=== PATIENT | female | born 1965 | race Caucasian/White ===

== ENCOUNTER 2018-02-05 11:28 | Emergency (ER) | payer SELFPAY ==
[2018-02-05 12:32] LABS: HCG,QUALITATIVE URINE NEGATIVE (NEGATIVE)
[2018-02-05 12:46] LABS: SQUAMOUS EPITHIAL < 1 /hpf (0-5); URINE BACTERIA RARE (<OCC); URINE BILIRUBIN NEGATIVE (NEGATIVE); URINE BLOOD NEGATIVE (NEGATIVE); URINE CLARITY Hazy (Clear); URINE COLOR Yellow (YELLOW); URINE GLUCOSE (UA) NORMAL (Normal); URINE HYALINE CAST 0-2 /lpf (0-2); URINE LEUKOCYTE ESTERASE 1+ Leu/uL (Negative); URINE PROTEIN NEGATIVE (NEGATIVE)
--- NOTE | 2018-02-05 14:14 | C.PDOC ---
History Of Present Illness 52 y/o female presents to the ED complaining of left lower abdominal pain, onset this morning. Pain radiates to the lower back and left leg. Associated with nausea and subjective fever. No vomiting, diarrhea, dysuria, hematuria, or incontinence. Pain is descried as constant, and not exacerbated by movement or change in position. Time Seen by Provider: 02/05/18 12:30 Chief Complaint (Nursing): Abdominal Pain History Per: Patient History/Exam Limitations: no limitations Onset/Duration Of Symptoms: Hrs Current Symptoms Are (Timing): Still Present Past Medical History Reviewed: Historical Data, Nursing Documentation, Vital Signs Vital Signs: Last Vital Signs Temp 98.9 F 02/05/18 15:16 Pulse 61 02/05/18 15:16 Resp 14 02/05/18 15:16 BP 123/73 02/05/18 15:16 Pulse Ox 61 L 02/05/18 15:16 - Medical History PMH: No Chronic Diseases Surgical History: Cholecystectomy, Family History: States: No Known Family Hx - Social History Hx Alcohol Use: No Hx Substance Use: No - Immunization History Hx Tetanus Toxoid Vaccination: No Hx Influenza Vaccination: No Hx Pneumococcal Vaccination: No Review Of Systems Except As Marked, All Systems Reviewed And Found Negative. Constitutional: Positive for: Fever Gastrointestinal: Positive for: Nausea, Abdominal Pain. Negative for: Vomiting , Diarrhea Genitourinary: Negative for: Dysuria, Frequency, Incontinence, Hematuria Musculoskeletal: Positive for: Back Pain, Leg Pain Physical Exam - Physical Exam Appears: Non-toxic, No Acute Distress Skin: Normal Color, Warm, Dry Head: Atraumatic, Normacephalic Eye(s): bilateral: Normal Inspection, PERRL, EOMI Nose: Normal Oral Mucosa: Moist Neck: Normal ROM, Supple Chest: Symmetrical Cardiovascular: Rhythm Regular, No Friction Rub, No Murmur Respiratory: Normal Breath Sounds, No Accessory Muscle Use, No Stridor, No Wheezing Gastrointestinal/Abdominal: Soft, Tenderness (mild to moderate), No Distention Back: Normal Inspection, No CVA Tenderness, No Vertebral Tenderness Extremity: Normal ROM, No Calf Tenderness, No Deformity, No Swelling Extremity: Bilateral: Normal Color And Temperature Pulses: Left Dorsalis Pedis: Normal, Right Dorsalis Pedis: Normal Neurological/Psych: Oriented x3, Normal Speech, Normal Motor Gait: Steady ED Course And Treatment - Laboratory Results Result Diagrams: 02/05/18 14:04 02/05/18 14:04 O2 Sat by Pulse Oximetry: 100 (RA) Pulse Ox Interpretation: Normal Medical Decision Making Medical Decision Making: Time: 13:04 Initial Plan: * CMP * CBC * Lipase * UA * Urine test * Toradol 30 mg IV * CT Abd/Pelvis W/O contrast On re-exam, the patient reports improvement of symptoms. Lungs are CTA, heart is RRR, abdomen is soft, non-tender and the patient is tolerating PO well. Ambulatory in the Ed with steady gait. Follow up with the medical doctor within 1-2 days. Return if worsend. Disposition Counseled Patient/Family Regarding: Studies Performed, Diagnosis, Need For Followup, Rx Given - Disposition Referrals: [facility] [Outside] [facility] [Outside] Disposition: HOME/ ROUTINE Disposition Time: 18:34 Condition: GOOD Additional Instructions: Follow up with the OBGYN within 1-2 days. Return if worsend. 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 - Scribe Statement The provider has reviewed the documentation as recorded by the Scribe (Mar Guevara) All medical record entries made by the Scribe were at my direction and personally dictated by me. I have reviewed the chart and agree that the record accurately reflects my personal performance of the history, physical exam, medical decision making, and the department course for this patient. I have also personally directed, reviewed, and agree with the discharge instructions and disposition.
[2018-02-05 14:15] LABS: BASO % 0.5 % (0.0-2.0); EOS # 0.1 K/uL (0.0-0.7); HEMOGLOBIN 11.6 g/dL (11.0-16.0); LYMPH # 1.7 K/uL (1.0-4.3); LYMPH % 29.6 % (20.0-40.0); MEAN CELL VOLUME 87.4 fL (81.0-99.0); MEAN CORPUSCULAR HEMOGLOBIN 29.9 pg (27.0-31.0); MEAN CORPUSCULAR HGB CONC 34.2 g/dL (33.0-37.0); MEAN PLATELET VOLUME 7.6 fL (7.2-11.7); MONO # 0.4 K/uL (0.0-0.8); MONO % 6.9 % (0.0-10.0); NEUT # 3.5 K/uL (1.8-7.0); NRBC % 0.1 % (0.0-2.0); RBC 3.88 Mil/uL (3.80-5.20); RED CELL DISTRIBUTION WIDTH 14.9 % (11.5-14.5); WHITE BLOOD COUNT 5.7 K/uL (4.8-10.8)
[2018-02-05 14:40] LABS: ALB/GLOB RATIO 1.2 (1.0-2.1); ALT/SGPT 27 U/L (9-52); AST/SGOT 30 U/L (14-36); BLOOD UREA NITROGEN 14 mg/dL (7-17); CALCIUM 9.5 mg/dl (8.6-10.4); GFR AFRICAN-AMERICAN > 60; GFR NON-AFRICAN AMERICAN > 60; LIPASE 118 U/L (23-300)
--- NOTE | 2018-02-05 15:45 | CT ---
PROCEDURE: CT Abdomen and Pelvis without intravenous contrast HISTORY: LLQ abd pain, L flank pain COMPARISON: None. TECHNIQUE: CT scan of the abdomen and pelvis was performed without administration of intravenous contrast. Oral contrast was not administered. Coronal and sagittal reformatted images were obtained. . Radiation dose: Total exam DLP = 505.59 mGy-cm. This CT exam was performed using one or more of the following dose reduction techniques: Automated exposure control, adjustment of the mA and/or kV according to patient size, and/or use of iterative reconstruction technique. FINDINGS: LOWER THORAX: The visualized lungs are clear. LIVER: The liver is normal in size. No gross lesion or ductal dilatation. GALLBLADDER AND BILE DUCTS: Not visualized and may be surgically absent. PANCREAS: Normal in sinus. No gross lesion or ductal dilatation. SPLEEN: Normal in size. ADRENALS: No discrete nodule. KIDNEYS AND URETERS: Both kidneys are normal in size without nephrolithiasis. No hydronephrosis. VASCULATURE: No aortic aneurysm. BOWEL: The small bowel loops are normal in caliber. The colon is unremarkable. No bowel dilatation or obstruction. APPENDIX: Normal appendix. PERITONEUM: No free fluid. No free air. LYMPH NODES: No enlarged lymph nodes. BLADDER: Unremarkable. REPRODUCTIVE: There is a 10.9 x 10.2 x 8.2 cm cystic mass in the left adnexa deviating the uterus to the right. BONES: No acute fracture. Within normal limits for the patient's age. OTHER FINDINGS: There is a small fat containing umbilical hernia. IMPRESSION: 1. Large 10.9 x 10.2 x 8.2 cm cystic mass in the left adnexa with resultant mass effect and deviation of the uterus to the right. The differential considerations include ovarian cyst, cystadenoma and cystadenocarcinoma. Clinical correlation and follow-up is advised. Gynecologic consult is recommended. 2. No evidence of nephrolithiasis or obstructive uropathy.
--- NOTE | 2018-02-05 18:21 | US ---
HISTORY: large pelvic mass on CT, LLQ abd pain COMPARISON: None available. TECHNIQUE: Transabdominal and transvaginal pelvic ultrasound was performed. FINDINGS: UTERUS: Measures 7.9 x 3.9 x 4.5 cm. Anteverted, normal in size and appearance. No fibroid or other mass lesion seen. ENDOMETRIUM: Measures 2.0 mm in diameter. Unremarkable. CERVIX: No cervical abnormality identified. RIGHT OVARY: Measures 1.7 x 1.5 x 2.0 cm. No solid mass. Normal flow. LEFT OVARY: Measures 10.7 x 7.0 x 9.9 cm. No solid mass. Normal flow. There is redemonstration of a large 9.9 x 6.8 x 10.0 cm anechoic mass without significant increased central peripheral vascularity in the left ovary. FREE FLUID: No significant free fluid noted. OTHER FINDINGS: None. IMPRESSION: 9.9 x 6.8 x 10.0 cm large cystic mass in the left ovary. The differential considerations include simple cyst, cystadenoma and cystadenocarcinoma. Clinical follow-up and gynecologic consult is recommended.
[2018-02-05 18:45] VITALS: BP 131/80; PULSE 62; RESP 16; TEMP 98.6; O2SAT 99
== END 2018-02-05 18:52 | disposition home or self-care (01) ==
LOC: C.ER 11:28
DX: N83.202 Unspecified ovarian cyst, left side (principal)
CPT/HCPCS: 74176; 76830; 76856; 80053; 81001; 83690; 84703; 85025; 96374; 99285; J1885

== ENCOUNTER 2018-06-12 05:09 | Emergency (ER) | payer MEDICAID, OTHER ==
[2018-06-12 05:28] VITALS: O2SAT 99
--- NOTE | 2018-06-12 05:28 | C.PDOC ---
History Of Present Illness pt presents with neck pain, radiating down left arm. moves without any difficulty. no dysphagia. no trauma. Time Seen by Provider: 06/12/18 05:28 Chief Complaint (Nursing): Back Pain History Per: Patient History/Exam Limitations: no limitations Onset/Duration Of Symptoms: Hrs Current Symptoms Are (Timing): Still Present Quality Of Discomfort: Dull, Aching Severity: Mild Pain Scale Rating Of: 2 Previous Symptoms: Neck Pain Associated Symptoms: None Exacerbating Factor(s): Movement Recent travel outside of the [place]: No Additional History Per: Patient Past Medical History Reviewed: Historical Data, Nursing Documentation, Vital Signs Vital Signs: Last Vital Signs Temp 98.5 F 06/12/18 05:20 Pulse 64 06/12/18 05:20 Resp 18 06/12/18 05:20 BP 143/86 06/12/18 05:20 Pulse Ox 99 06/12/18 06:02 Surgical History: Cholecystectomy, Family History: States: No Known Family Hx - Social History Hx Alcohol Use: No Hx Substance Use: No - Immunization History Hx Tetanus Toxoid Vaccination: No Hx Influenza Vaccination: No Hx Pneumococcal Vaccination: No Review Of Systems Constitutional: Negative for: Fever, Chills Musculoskeletal: Positive for: Neck Pain, Arm Pain Skin: Negative for: Rash Neurological: Negative for: Weakness Psych: Negative for: Anxiety Physical Exam - Physical Exam Appears: Non-toxic, No Acute Distress Skin: Warm, Dry Ear(s): Bilateral: Normal Throat: No Erythema, No Exudate, No Drooling Neck: No Decreased ROM, Trachea Midline, No Midline Cervical Tenderness, Paracervical Tenderness (mild left), Supple Chest: Symmetrical Extremity: No Tenderness, No Swelling, Other (good rom, active and passive) Neurological/Psych: Oriented x3, Normal Speech, Normal Cognition Gait: Steady ED Course And Treatment O2 Sat by Pulse Oximetry: 99 Pulse Ox Interpretation: Normal Reevaluation Time: 06:31 Reassessment Condition: Improved Medical Decision Making Medical Decision Making: Upon provider reevaluation patient is feeling better, is medically stable, and requires no further treatment in the ED at this time. Patient will be discharged home with Rx for naproxen . Counseling was provided and all questions were answered regarding diagnosis and need for follow up with the referred clinic. There is agreement to discharge plan. Return if symptoms persist or worsen. Disposition Counseled Patient/Family Regarding: Studies Performed, Diagnosis, Need For Followup, Rx Given - Disposition Referrals: [facility] [Outside] [facility] [Outside] Disposition: HOME/ ROUTINE Disposition Time: 05:28 Condition: FAIR Additional Instructions: Please return if symptoms recur Prescriptions: Naproxen [Naprosyn] 1 tab PO BID PRN #25 tab PRN Reason: Pain Instructions: Cervical Muscle Strain (DC) Forms: [employer] (Greek) Print Language: LAO - Clinical Impression Clinical Impression: Neck strain
[2018-06-12 06:39] VITALS: BP 122/84; PULSE 61; RESP 14; TEMP 97.8
== END 2018-06-12 06:39 | disposition home or self-care (01) ==
LOC: C.ER 05:09
DX: S16.1XXA Strain of muscle, fascia and tendon at neck level, initial encounter (principal); X58.XXXA Exposure to other specified factors, initial encounter; Y92.9 Unspecified place or not applicable

== ENCOUNTER 2018-06-27 13:54 | Emergency (ER) | payer OTHER ==
--- NOTE | 2018-06-27 15:58 | C.PDOC ---
History Of Present Illness 53-year-old female, whose PMHx includes Ovarian Cyst, presents to the ED for evaluation of abdominal pain associated with nausea and dizziness for the past day. Patient states her pain is localized to her left lower quadrant region and is non-radiating. Patient notes her pain was worse this morning, and has now slightly improved. Patient denies fever, chills, diarrhea, and vomiting. Time Seen by Provider: 06/27/18 15:31 Chief Complaint (Nursing): Groin Pain History Per: Patient History/Exam Limitations: no limitations Onset/Duration Of Symptoms: Hrs Current Symptoms Are (Timing): Better Location Of Pain/Discomfort: LLQ Quality Of Discomfort: "Pain" Additional History Per: Patient Past Medical History Reviewed: Historical Data, Nursing Documentation, Vital Signs Vital Signs: Last Vital Signs Temp 98.7 F 06/27/18 14:24 Pulse 59 L 06/27/18 14:24 Resp 20 06/27/18 14:24 BP 115/74 06/27/18 14:24 Pulse Ox 99 06/27/18 14:24 - Medical History Other PMH: ovarian cyst Surgical History: Cholecystectomy, Family History: States: Unknown Family Hx - Social History Hx Alcohol Use: No Hx Substance Use: No - Immunization History Hx Tetanus Toxoid Vaccination: No Hx Influenza Vaccination: No Hx Pneumococcal Vaccination: No Review Of Systems Constitutional: Negative for: Fever, Chills Cardiovascular: Negative for: Chest Pain Respiratory: Negative for: Shortness of Breath Gastrointestinal: Positive for: Abdominal Pain (left lower quadrant ). Negative for: Vomiting, Diarrhea Physical Exam - Physical Exam Appears: Non-toxic, No Acute Distress Skin: Normal Color, Warm, Dry Head: Atraumatic, Normacephalic Eye(s): bilateral: Normal Inspection Oral Mucosa: Moist Neck: Supple Chest: Symmetrical, No Deformity, No Tenderness Cardiovascular: Rhythm Regular, No Murmur Respiratory: Normal Breath Sounds, No Rales, No Rhonchi, No Wheezing Gastrointestinal/Abdominal: Soft, Tenderness (left lower quadrant ), No Guarding, No Rebound Extremity: Normal ROM, Capillary Refill (less than 2 seconds ) Neurological/Psych: Oriented x3, Normal Speech, Normal Cognition ED Course And Treatment - Laboratory Results Result Diagrams: 06/27/18 16:48 06/27/18 16:48 O2 Sat by Pulse Oximetry: 99 (on RA) Pulse Ox Interpretation: Normal Medical Decision Making Medical Decision Making: Impression: left lower quadrant abdominal pain, will rule out diverticulitis and urinary tract infection Plan: * bloodwork * urinalysis * CT A/P * Zofran IVP * IV Fluids * reassess and disposition Progress: Bloodwork, urinalysis, CT A/P ordered and reviewed. Zofran IVP and IV fluids given. Disposition - Disposition Disposition: HOME/ ROUTINE Disposition Time: 18:36 Condition: GOOD Forms: [employer] (Thai) - Clinical Impression Clinical Impression: Abdominal pain - Scribe Statement The provider has reviewed the documentation as recorded by the Scribe (Asuncion Padilla) Provider Attestation: All medical record entries made by the Scribe were at my direction and personally dictated by me. I have reviewed the chart and agree that the record accurately reflects my personal performance of the history, physical exam, medical decision making, and the department course for this patient. I have also personally directed, reviewed, and agree with the discharge instructions and disposition.
[2018-06-27] MEDS ORDERED: Sodium Chloride 0.9% 1,000 ML IV ONE (16:03)
[2018-06-27 17:00] LABS: BASO % 0.7 % (0.0-2.0); EOS # 0.1 K/uL (0.0-0.7); EOS % 1.5 % (0.0-4.0); HEMOGLOBIN 11.7 g/dL (11.0-16.0); LYMPH % 33.2 % (20.0-40.0); MEAN CELL VOLUME 85.7 fL (81.0-99.0); MEAN PLATELET VOLUME 7.3 fL (7.2-11.7); MONO # 0.5 K/uL (0.0-0.8); MONO % 8.8 % (0.0-10.0); NEUT # 3.4 K/uL (1.8-7.0); NEUT % 55.8 % (50.0-75.0); RBC 3.89 Mil/uL (3.80-5.20); RED CELL DISTRIBUTION WIDTH 14.5 % (11.5-14.5); WHITE BLOOD COUNT 6.1 K/uL (4.8-10.8)
[2018-06-27 17:02] LABS: SQUAMOUS EPITHIAL < 1 /hpf (0-5); URINE BACTERIA RARE (<OCC); URINE BILIRUBIN NEGATIVE (NEGATIVE); URINE BLOOD NEGATIVE (NEGATIVE); URINE CLARITY Clear (Clear); URINE COLOR Yellow (YELLOW); URINE GLUCOSE (UA) NORMAL (Normal); URINE LEUKOCYTE ESTERASE TRACE Leu/uL (Negative); URINE PROTEIN NEGATIVE (NEGATIVE); URINE UROBILINOGEN NORMAL mg/dL (0.2-1.0)
[2018-06-27] MEDS ORDERED: Iohexol 240 (50 ml) PO ONE (17:11)
[2018-06-27 17:12] LABS: ALB/GLOB RATIO 1.3 (1.0-2.1); ALBUMIN 4.4 g/dL (3.5-5.0); ALT/SGPT 28 U/L (9-52); AST/SGOT 36 U/L (14-36); BLOOD UREA NITROGEN 18 mg/dL (7-17); CALCIUM 9.5 mg/dl (8.6-10.4); GFR NON-AFRICAN AMERICAN > 60; LIPASE 109 U/L (23-300)
[2018-06-27] MEDS ORDERED: Sodium Chloride 0.9% 1,000 ML ONE (17:15)
[2018-06-27 17:22] VITALS: TEMP 97.9
[2018-06-27] MEDS ORDERED: Iohexol 240 (50 ml) ONE (18:02)
[2018-06-27] MEDS ORDERED: Iohexol 300 100 ML IJ ONE (18:50)
[2018-06-27 22:05] VITALS: BP 123/82; PULSE 82; RESP 16; O2SAT 100
--- NOTE | 2018-06-28 08:14 | CT ---
Date of service: 06/27/2018 PROCEDURE: CT Abdomen and Pelvis with intravenous contrast HISTORY: Abdominal pain COMPARISON: 02/05/2018 TECHNIQUE: Multiple contiguous axial images were performed through the abdomen and pelvis with the use of intravenous contrast. Subsequently, sagittal and coronal reformatted images were obtained. Radiation dose: Total exam DLP = 593 mGy-cm. This CT exam was performed using one or more of the following dose reduction techniques: Automated exposure control, adjustment of the mA and/or kV according to patient size, and/or use of iterative reconstruction technique. FINDINGS: LOWER THORAX: Unremarkable. LIVER: Unremarkable. No gross lesion or ductal dilatation. GALLBLADDER AND BILE DUCTS: Not well visualized. Contracted and or resected. PANCREAS: Unremarkable. No gross lesion or ductal dilatation. SPLEEN: Unremarkable. ADRENALS: Unremarkable. No mass. KIDNEYS AND URETERS: Unremarkable. No hydronephrosis. No solid mass. VASCULATURE: Unremarkable. No aortic aneurysm. BOWEL: Mild thickening of the distal stomach/proximal duodenum. Mild bowel wall thickening involving scattered regions in the small bowel. Moderate fecal retention in the colon. APPENDIX: Unremarkable. Normal appendix. PERITONEUM: Unremarkable. No free fluid. No free air. LYMPH NODES: Unremarkable. No enlarged lymph nodes. BLADDER: Unremarkable. REPRODUCTIVE: Again identified is a persistent large low-attenuation cystic lesion emanating from the left adnexa measuring up to 11.0 by 9.0 centimeters. This may represent a large ovarian cyst versus cystadenoma versus cystadenocarcinoma versus additional etiology. Correlation with pelvic MRI would be helpful for further evaluation if clinically indicated. BONES: Degenerative changes in the spine. Bone island in the left proximal femur. OTHER FINDINGS: None. IMPRESSION: 11 x 9 millimeter cystic lesion in the left adnexa. This may represent a prominent cyst versus cystadenoma versus cystadenocarcinoma versus additional etiology. Correlation with pelvic MRI and or pelvic ultrasound may be helpful if clinically indicated. Scattered areas of mucosal thickening seen at the level of the distal stomach, proximal duodenum, and within scattered regions of the small bowel. This may represent an underlying gastroenteritis. Clinical correlation. Moderate fecal retention in the colon. These findings were preliminarily reported at 8:42 p.m. on 06/27/[address] Wai Kennedy from [employer].
== END 2018-06-27 22:05 | disposition home or self-care (01) ==
LOC: C.ER 13:54
DX: N83.209 Unspecified ovarian cyst, unspecified side (principal); R10.32 Left lower quadrant pain
CPT/HCPCS: 74177; 80053; 81001; 83690; 85025; 87086; 96361; 96374; 99285; J2405; J7030; Q9966; Q9967